=== PATIENT | female | born 1995 | race Caucasian/White ===

== ENCOUNTER 2019-02-18 09:13 | Emergency (ER) | payer BC ==
[~2019-02-18] VITALS: Ht 162.6 cm; Wt 64.0 kg
[2019-02-18] MEDS ORDERED: PRENATAL TABLE1 EAC1 PO (09:41)
[2019-02-18] MEDS ORDERED: REGLAN10 MG PO (10:40)
== END 2019-02-18 11:07 | disposition home or self-care (01) ==
LOC: ED 09:13
DX: O99.351 Diseases of the nervous system complicating pregnancy, first trimester (principal); G43.909 Migraine, unspecified, not intractable, without status migrainosus; Z91.040 Latex allergy status; Z79.52 Long term (current) use of systemic steroids; Z3A.10 10 weeks gestation of pregnancy
CPT/HCPCS: 80053; 81001; 85025; 96361; 96374; 96375; 99284-25; J1100; J2765; J7030

== ENCOUNTER 2022-07-03 11:31 | Emergency (ER) | payer OTHER ==
[~2022-07-03] VITALS: Ht 165.1 cm; Wt 61.2 kg
[~2022-07-03 11:31] MED LIST: PRENATAL TABLE1 EAC1 PO; REGLAN10 MG PO
[2022-07-03] MEDS ORDERED: PREDNISONE20 MG PO (13:26)
[2022-07-03] MEDS ORDERED: VENTOLIN HFA18 GM INH (13:26)
== END 2022-07-03 13:39 | disposition home or self-care (01) ==
LOC: ED 11:31
DX: J45.901 Unspecified asthma with (acute) exacerbation (principal); Z91.040 Latex allergy status; Z88.8 Allergy status to other drugs, medicaments and biological substances
CPT/HCPCS: 94640; 99284-25; J7512